=== PATIENT | female | born 2000 | race Two or more races ===

== ENCOUNTER 2024-08-12 09:13 | Outpatient (AMB) | payer OTHER, MEDICAID, SELFPAY ==
[2024-08-12 09:39] VITALS: BP 140/87; PULSE 83; RESP 18; TEMP 36.6; O2SAT 96; BMI 41.3
--- NOTE | 2024-08-12 09:39 | OBCLNT_ITS ---
Vital Signs 08/12/24 09:39 Height 1.6 m Height Method Stated Weight 105.8 kg Weight Measurement Method Standing Scale BMI 41.3 BP 140/87 H Blood Pressure Source Automatic Cuff Blood Pressure Location Right Upper Arm Position Sitting Respiration 18 Pulse 83 Pulse Source Monitor Temp 98 F Temp Source Oral Pulse Oximetry (%) 96 Oxygen Delivery Method Room Air Allergies/Home Meds Allergies & Medications Allergies tampico Allergy (Intermediate, Uncoded 08/20/24 17:57) Hives Medication Reconciliation sertraline 100 mg tablet 100 mg PO DAILY 09/22/20 [History Confirmed 08/20/24] metformin 500 mg tablet 500 mg PO .see below 30 days #90 tabs 08/12/24 [Rx Confirmed 08/20/24] metformin 1,000 mg tablet 1,000 mg PO .nightly 08/20/24 [History Confirmed 08/20/24] hydrocodone 5 mg-acetaminophen 325 mg tablet 1 tab PO Q6H PRN pain #20 tabs 08/22/24 [Rx] ibuprofen 600 mg tablet 600 mg PO Q6H PRN pain #30 tabs 08/22/24 [Rx] labetalol 200 mg tablet 200 mg PO BID #60 tabs 08/24/24 [Rx] Intake Visit Data Collection New Patient or Established: Established Patient (seen at [facility] within 3 years) Reason for Visit:: INITIAL CARE/TRANSFER Seen by Clinical Staff ONLY (RN/MA): No Advertising Production Manager Required: No Do You Feel Safe at Home: Yes Authorities Contacted: N/A PCP or OBGYN visit in last 3 months: Yes Hx Now: Yes Are you currently on any form of Control: No Last menstrual period: 12/08/23 Pain Present Currently: No Pain Scale Used: Li-Mckinney/Numerical Pain scale:: 0 Smoking Status Smoking Status: Former smoker Questionnaires Covid-19 Vaccine Questionnaire Has patient been vacinated for Covid-19 Have you been vacinated for Covid-19: Yes PHQ-9 PHQ-2 Over the last 2 weeks, how often have you been bothered by any of the following problems? 1. Little interest or pleasure in doing things: not at all 2. Feeling down, depressed, or hopeless: not at all Total score: 0 PHQ-9 3. Trouble falling or staying asleep, or sleeping too much: Not at all 4. Feeling tired or having little energy: Not at all 5. Poor appetite or overeating: Not at all 6. Feeling bad about yourself - or that you are a failure or have let yourself or your family down: Not at all 7. Trouble concentrating on things, such as reading the newspaper or watching television: Not at all 8. Moving or speaking so slowly that other people could have noticed? - Or the opposite - being so fidgety or restless that you have been moving around a lot more than usual: not at all 9. Thoughts that you would be better off or of hurting yourself in some way: Not at all Total score: 0 Source: Developed by Drs. Paul Helton, Naya Logan, Nic Armas and colleagues, with an educational woody from [employer]. Depression screen completed yes Social History Living Situation History Marital Status: Lives With: Family Housing: House Tobacco History Smoking Status: Former smoker Second Hand Smoke Exposure: No Alcohol History Alcohol Intake: Never Domestic Abuse History Do You Feel Safe at Home: Yes History of Present Illness HPI Narrative Kym Cantu, , presents for routine visit at 31 weeks gestation. No contractions, LOF, VB and reports good FM. Denies LEPE, VC, and epigastric pain. - Kym Cantu is a 24-year-old presenting for transfer of care at 35 weeks and 3 days gestation. - Last menstrual period was 12-08-2023, with an estimated due date of 09-12-2024. - Patient has gestational diabetes: - Initially prescribed Lantus and Humalog - Currently on metformin: 500 mg in the morning and 1000 mg at night - Blood sugar levels: 130-150 postprandial and 110-120 fasting - Needs refill of metformin Laboratory, Imaging, and Diagnostic Test Results - Date: 02/15/2024 - Blood group: O-positive - Hemoglobin: 12.5 g/dL - Platelets: 307 - RPR: non-reactive - Hepatitis B: negative - Gonorrhea and chlamydia: negative - One-hour glucose tolerance: 221 mg/dL - Hemoglobin A1c: 5.7% - Cystic fibrosis screening: negative - Date: 02/16/2024 - NIPT: negative for trisomies - Ultrasound (05/22/2024): Gestational age 22 weeks and 4 days - Ultrasound (07/16/2024): - Single intrauterine - DALLIN: 24.02 cm - Estimated weight: 1876 grams (52nd percentile) - Gestational age: 31 weeks and 3 days 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 No contractions, leakage of fluid, vaginal bleeding, and reports good movement. Denies headache, vision changes, or right upper quadrant/epigastric pain. Gestational diabetes diagnosed with one-hour glucose 221 mg/dL, HbA1c 5.7%, managed on metformin 500 mg AM and 1000 mg PM; current sugars 130?150 postprandial and 110?120 fasting. Ultrasound at 31w3d shows DALLIN 24.02 cm, EFW 1876g (52nd percentile). NIPT negative for trisomies, blood type O+, normal hemoglobin and infectious screening. Plan: Problem list: Gestational diabetes kennedy leung, 31w. Continue metformin 500 mg AM and 1000 mg PM; initiate switch to long-acting insulin for nighttime coverage. Start hospital-based twice-weekly monitoring for diabetes management. Refill metformin prescription to [facility] in [place]. Weekly visits to [facility], [facility] appointment scheduled 08/20/2024. Counseling provided on movement monitoring, preeclampsia and labor precautions, nutrition, safe activity, and delivery preparation. 08/19/24 -?-?-?-?-?-?-?-?-?-?-?-?- 36w 3d 110.847 kg 132/83 @36w3d with GDM on metformin (500mg AM, 1000mg PM), declined insulin. Glucose logs show highs ~150. Reports persistent headache last week; evaluated at hospital. FHR 145 bpm, good FM. Awaiting growth US at [facility] on 08/20. Plan: Call [facility] at 3 PM for US re sullorrie; consider induction based on . Book induction accordingly. Self-administered vaginal GBS swab today. F/u next week; provider to call patient with updates prior. Continue monitoring, safety counseling, and GDM management. Menstrual History Menstrual reliability: definite Flow: normal Menstrual regularity: regular Monthly: Yes Age at menarche: 11 On control pills at conception: No OB History : 1 # of Living Children: 0 Infection History & Risk Evaluation History of STDs: none Genetic Screening & History Genetic Screening/Teratology Counseling - Includes patient, baby's father, or anyone in either family with: 1. Patient's age 35 years or older as of estimated date of delivery: No 2. Thalassemia (Macedonian, Uruguayan, Mediterranean, or Background); MCV less than 80: No 3. Neural Tube Defect (Meningomyelocele, Spina Bifida, or Anencephaly): No 4. Congenital Heart Defect: No 5. Down Syndrome: No 6. Leo-Sachs (Ashkenazi Anglican, Cajun, Setswana Palauan): No 7. Rina Disease (Ashkenazi Anglican): No 8. Familial Dysautonomia (Ashkenazi Anglican): No 9. Sickle Cell Disease or Trait (): No 10. Hemophilia or other blood disorders: No 11. Muscular Dystrophy: No 12. Cystic Fibrosis: No 13. Patrick's Chorea: No 14. Mental Retardation/Autism: No 15. Other inherited genetic or chromosomal disorder: No 16. Maternal Metabolic Disorder (EG,TYPE 1 Diabetes, PKU): No 17. Patient or baby's father had a child with defects not listed above: No 18. Recurrent loss or a stillbirth: No 19. Medications (including supplements, vitamins, herbs or otc drugs)/illicit/recreational drugs/alcohol since last menstrual period: No 20. Any other: No Infection History 1. Live with someone with TB or exposed to TB: No 2. Rash or viral illness since last menstrual period: No 3. Hepatitis B,C: No Other (see comments) Source: [employer] Office Procedures OB Clinic LOC & Office Proc's Nursing/Assessment Patient Status: Established Patient OB Clinic Nursing Assessment: Medication Reconciliation, Update PMH in EMR and Vital Signs OB Clinic Coordination of Care: Complex Care and Chronic Disease 1-5, Consent,records obtained, informed consent, Education Simp Pt/Fam, Lab and Imaging orders, Results/Orders obtained and Staff clarify orders Special Needs: Heart tones Established Patient Charge Established Patient Point Assignment: 135 Established Patient Point Charge: EP Level 4 (120-155) Assessment & Plan Diagnosis / Problem List (1) Body mass index (BMI) of 40.1 to 44.9 in adult: Status: Acute (2) Gestational diabetes: Status: Acute (3) High-risk in third trimester: Status: Acute Plan Problem List - Gestational diabetes mellitus - , third trimester Assessment 24-year-old at 31 weeks and 3 days gestation based on last menstrual period, presenting for transfer of care. Gestational diabetes diagnosed with one-hour glucose tolerance of 221 and HbA1c of 5.7. Currently managed with metformin 500 mg in the morning and 1000 mg at night, with blood sugar levels 130-150 postprandial and 110-120 fasting. Single intrauterine confirmed by ultrasound with DALLIN of 24.02 and estimated weight of 1876 grams (52nd percentile). NIPT negative for trisomies. labs show O- positive blood type, normal hemoglobin and platelets, negative for infectious diseases and cystic fibrosis screening. Plan - Continue metformin 500 mg in the morning and 1000 mg at night - Replace night metformin with long-acting insulin for better blood sugar control - Initiate monitoring at the hospital twice a week for diabetes management - Refill metformin prescription, to be sent to [facility] in [place] - Schedule weekly follow-up appointments - Attend [facility] appointment on 08-20-2024 1. Progress Reviewed gestational age, growth, and heart rate. Planned frequent visits (every 2 weeks until 36 weeks, then weekly). 2. Instructed patient to monitor movements and report decreases immediately. 3. Testing Counseled on routine third-trimester labs per guidelines. Discussed potential need for ultrasound or monitoring based on risk factors. 4. Preeclampsia Precaution Educated on preeclampsia signs: severe headache, vision changes, right upper quadrant pain, sudden swelling. Advised urgent reporting of symptoms and discussed blood pressure monitoring if high risk. 5. Labor Precautions Reviewed labor signs: regular contractions, pelvic pressure, back pain, bleeding, or fluid leakage. Instructed to seek immediate care for these symptoms. 6. Lifestyle and Delivery Preparation Reinforced vitamins, nutrition, and safe activity. Discussed plan, pain management, and . Advised on labor preparation (e.g., hospital bag) and expectations. 7. Psychosocial Support Assessed emotional well-being and offered resources for mental health or pare nting support.
== END 2024-08-12 09:46 | disposition home or self-care (01) ==
LOC: HODSOBC 09:13
PROVIDERS: PCP Nurse Practitioner Family; Referring Provider Nurse Practitioner Family; Supervising Provider Obstetrics & Gynecology; Visit Provider Obstetrics & Gynecology
DX: O09.893 Supervision of other high risk pregnancies, third trimester (principal); O24.415 Gestational diabetes mellitus in pregnancy, controlled by oral hypoglycemic drugs; Z3A.35 35 weeks gestation of pregnancy; Z87.891 Personal history of nicotine dependence
CPT/HCPCS: 99214; G0463

== ENCOUNTER 2024-08-19 08:54 | Outpatient (AMB) | payer OTHER, MEDICAID, SELFPAY ==
[2024-08-19 09:34] VITALS: BP 132/83; PULSE 74; RESP 17; TEMP 36.8; O2SAT 97; BMI 43.2
--- NOTE | 2024-08-19 09:34 | AMB.OBVISIT ---
Vital Signs 08/19/24 09:34 Height 1.6 m Height Method Stated Weight 110.847 kg Weight Measurement Method Standing Scale BMI 43.2 BP 132/83 H Blood Pressure Source Automatic Cuff Blood Pressure Location Right Upper Arm Position Sitting Respiration 17 Pulse 74 Pulse Source Monitor Temp 98.2 F Temp Source Temporal Artery Scan Pulse Oximetry (%) 97 Oxygen Delivery Method Room Air Allergies/Home Meds Allergies & Medications Allergies No Known Allergies Allergy (Verified 08/19/24 11:49) Medication Reconciliation alprazolam 0.25 mg tablet 0.25 mg PO DAILY 09/22/20 [History Confirmed 08/19/24] sertraline 100 mg tablet 100 mg PO DAILY 09/22/20 [History Confirmed 08/19/24] albuterol sulfate 90 mcg/actuation aerosol inhaler 2 puff inhalation QID #8.5 grams 12/31/20 [Rx Confirmed 08/19/24] cetirizine 10 mg tablet (Zyrtec) 10 mg PO QDAY PRN allergy symptoms #30 tabs 12/31/20 [Rx Confirmed 08/19/24] metformin 500 mg tablet 500 mg PO .see below 30 days #90 tabs 08/12/24 [Rx Confirmed 08/19/24] Intake Visit Data Collection New Patient or Established: Established Patient (seen at [facility] within 3 years) Reason for Visit:: OBC Seen by Clinical Staff ONLY (RN/MA): No Decorator Lighting Fixtures Required: No Do You Feel Safe at Home: Yes Authorities Contacted: N/A PCP or OBGYN visit in last 3 months: Yes Date of Last PCP or OBGYN visit: 08/12/24 Hx Now: Yes Are you currently on any form of Control: No Pain Present Currently: Yes Pain Location: Abdomen Pain Scale Used: Li-Mckinney/Numerical Pain scale:: 2 Smoking Status Smoking Status: Former smoker Questionnaires Covid-19 Vaccine Questionnaire Has patient been vacinated for Covid-19 Have you been vacinated for Covid-19: Yes PHQ-9 PHQ-2 Over the last 2 weeks, how often have you been bothered by any of the following problems? 1. Little interest or pleasure in doing things: not at all 2. Feeling down, depressed, or hopeless: not at all Total score: 0 PHQ-9 3. Trouble falling or staying asleep, or sleeping too much: Not at all 4. Feeling tired or having little energy: Not at all 5. Poor appetite or overeating: Not at all 6. Feeling bad about yourself - or that you are a failure or have let yourself or your family down: Not at all 7. Trouble concentrating on things, such as reading the newspaper or watching television: Not at all 8. Moving or speaking so slowly that other people could have noticed? - Or the opposite - being so fidgety or restless that you have been moving around a lot more than usual: not at all 9. Thoughts that you would be better off or of hurting yourself in some way: Not at all Total score: 0 If you checked off any problems, how difficult have these problems made it for you to do your work, take care of things at home, or get along with other people?: not difficult at all Source: Developed by Drs. Paul Helton, Naya Logan, Nic Armas and colleagues, with an educational woody from [employer]. 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 Patient reports headache. Denies VC, and epigastric pain. - Kym Cantu is a 24-year-old at 36 weeks and 3 days gestation presenting for follow-up of gestational diabetes mellitus (GDM). - Currently taking metformin for GDM management - 500 mg with breakfast and 1000 mg with dinner - Originally prescribed insulin but declined due to fear of needles - Here for review of glucose logs - Reports highest blood sugar reading around 150 mg/dL - Recent hospital visit for persistent headache - Lasted for a couple of days - Hospital suggested potential induction in the coming weeks - Denies any other issues - Reports baby is active Care OB Visit Log OB Flowsheet Initial Weight: Not Recorded Date <del>?</del> EGA Weight BP Alb Glu CTX Pres Fundal ht FHR Mov Dilation Station Effacement Hx Notes Visit Note 08/12/24 <del>?</del> 35w 3d 105.8 kg 140/87 at 31 weeks gestation presents for transfer of care. No contractions, leakage of fluid, vaginal bleeding, and reports good movement. Denies headache, vision changes, or right upper quadrant/epigastric pain. Gestational diabetes diagnosed with one-hour glucose 221 mg/dL, HbA1c 5.7%, managed on metformin 500 mg AM and 1000 mg PM; current sugars 130?150 postprandial and 110?120 fasting. Ultrasound at 31w3d shows DALLIN 24.02 cm, EFW 1876g (52nd percentile). NIPT negative for trisomies, blood type O+, normal hemoglobin and infectious screening. Plan: Problem list: Gestational diabetes mellitus, 31w. Continue metformin 500 mg AM and 1000 mg PM; initiate switch to long-acting insulin for nighttime coverage. Start hospital-based twice-weekly monitoring for diabetes management. Refill metformin prescription to [facility] in [place]. Weekly visits to begin, next [facility] appointment scheduled 08/20/2024. Counseling provided on movement monitoring, preeclampsia and labor precautions, nutrition, safe activity, and delivery preparation. 08/19/24 <del>?</del> 36w 3d 110.847 kg 132/83 @36w3d with GDM on metformin (500mg AM, 1000mg PM), declined insulin. Glucose logs show highs ~150. Reports persistent headache last week; evaluated at hospital. FHR 145 bpm, good FM. Awaiting growth US at [facility] on 08/20. Plan: Call [facility] at 3 PM for US results; consider induction based on growth. Book induction accordingly. Self-administered vaginal GBS swab today. F/u next week; provider to call patient with updates prior. Continue monitoring, safety counseling, and GDM management. LUIS Calculator Estimated Delivery Date Method Current WG Current Estimate 09/13/24 LMP (Certain) 36w 4d Other Estimates 09/21/24 Ultrasound #1 35w 3d 09/14/24 Ultrasound #2 36w 3d Exam General General Appearance: alert, in no apparent distress and healthy appearing Head Head exam: atraumatic Neck Neck exam: Present normal inspection and trachea midline Chest Chest inspection: Present normal inspection and symmetric chest wall rise External exam: Present normal external exam; Absent tenderness Neuro Neurological exam: Present oriented X3 Psych Psychiatric exam: Present normal affect and normal mood Office Procedures OB Clinic LOC & Office Proc's Nursing/Assessment Patient Status: Established Patient OB Clinic Nursing Assessment: Medication Reconciliation, Update PMH in EMR and Vital Signs OB Clinic Coordination of Care: Complex Care and Chronic Disease 1-5, Consent,records obtained, informed consent, Education Simp Pt/Fam, Lab and Imaging orders and Staff clarify orders Special Needs: Heart tones Established Patient Charge Established Patient Point Assignment: 130 Established Patient Point Charge: EP Level 4 (120-155) Assessment & Plan Diagnosis / Problem List (1) High-risk in third trimester: Status: Acute (2) Body mass index (BMI) of 40.1 to 44.9 in adult: Status: Acute Plan Problem List - Gestational diabetes mellitus - , first trimester - Headache Assessment at 36 weeks and 3 days gestation with LUIS 09/14/2019, presenting for follow-up. Patient has gestational diabetes mellitus (GDM) managed with metformin 500 mg at breakfast and 1000 mg at dinner, after declining insulin due to needle phobia. Recent glucose logs show highest reading of 150 mg/dL. Patient reports recent hospital visit due to persistent headache lasting several days. heart rate auscultated at 145 bpm, with reported activity. Awaiting results of upcoming maternal- medicine ultrasound to assess growth and guide potential induction planning. Plan - Follow up ultrasound at [facility] on August 20, 2024 - Provider to call [facility] around 3 PM for ultrasound report - Based on ultrasound measurements, plan for potential induction and book induction date - Patient to perform self-administered vaginal swab culture - Follow-up appointment scheduled for next week - Provider to call patient with updates before next week's appointment 1. Progress Reviewed gestational age, growth, and heart rate. Planned frequent visits (every 2 weeks until 36 weeks, then weekly). 2. Instructed patient to monitor movements and report decreases immediately. 3. Testing Counseled on routine third-trimester labs per guidelines. Discussed potential need for ultrasound or monitoring based on risk factors. 4. Preeclampsia Precaution Educated on preeclampsia signs: severe headache, vision changes, right upper quadrant pain, sudden swelling. Advised urgent reporting of symptoms and discussed blood pressure monitoring if high risk. 5. Labor Precautions Reviewed labor signs: regular contractions, pelvic pressure, back pain, bleeding, or fluid leakage. Instructed to seek immediate care for these symptoms. 6. Lifestyle and Delivery Preparation Reinforced vitamins, nutrition, and safe activity. Discussed plan, pain management, and . Advised on labor preparation (e.g., hospital bag) and expectations. 7. Psychosocial Support Assessed emotional well-being and offered resources for mental health or parenting support.
== END 2024-08-19 09:56 | disposition home or self-care (01) ==
LOC: HODSOBC 08:54
PROVIDERS: PCP Obstetrics & Gynecology; Referring Provider Obstetrics & Gynecology; Supervising Provider Obstetrics & Gynecology; Visit Provider Obstetrics & Gynecology
DX: O09.893 Supervision of other high risk pregnancies, third trimester (principal); O24.415 Gestational diabetes mellitus in pregnancy, controlled by oral hypoglycemic drugs; O26.893 Other specified pregnancy related conditions, third trimester; R51.9 Headache, unspecified; Z3A.36 36 weeks gestation of pregnancy; O99.343 Other mental disorders complicating pregnancy, third trimester; F40.231 Fear of injections and transfusions; Z87.891 Personal history of nicotine dependence
CPT/HCPCS: 99214; G0463

== ENCOUNTER 2024-08-20 15:52 | Inpatient (IN) | payer OTHER, MEDICAID, SELFPAY ==
[2024-08-20] VITALS (101 sets, daily range): BP systolic 132–185; BP diastolic 64–99; PULSE 77–106; RESP 17–99; TEMP 36.6–36.7; O2SAT 93–100; BMI 43.7
--- NOTE | 2024-08-20 16:34 | XR_ITS ---
Examination: Complete OB ultrasound greater than 14 weeks Date and time of exam: August 20, 2024 1644 hours INDICATIONS: -induced hypertension today Findings: Viable intrauterine single fetus with single amniotic sac presentation cephalic Cardiac motion 152 BPM Placenta anterior grade 2 Three-vessel umbilical cord insertion Amniotic fluid index 19.4 cm spine posterior Ovaries obscured by bowel gas. Composite estimated gestational age based on BPD, head circumference, abdominal circumference, femur length is 37 weeks 2 days Estimated weight 3270 g. Survey of intracranial anatomy, spinal anatomy, abdominal anatomy, four-chamber heart performed with no abnormalities identified. Impression: Viable intrauterine gestation cephalic presentation.
[2024-08-20 16:39] LABS: Basophils % (Auto) 0 % (0-2.5); Eosinophils # (Auto) 0.3 Thou/mm3 (0.0-0.5); Eosinophils % (Auto) 2 % (0-10); Hematocrit 36.8 % (36.0-46.0); Hemoglobin 12.1 g/dL (12.0-16.0); Immature Granulocytes % (Auto) 0 % (0-0); Immature Granulocytes Auto 0.05 Thou/mm3 (0.00-0.00); Lymphocytes # (Auto) 1.8 Thou/mm3 (1.0-4.8); Lymphocytes % (Auto) 14 % (10-50); Mean Corpuscular HGB Conc 32.9 g/dl (31.0-37.0); Mean Corpuscular Hemoglobin 27.5 pg (25.0-35.0); Mean Corpuscular Volume 84 fL (80-100); Monocytes # (Auto) 1.1 Thou/mm3 (0.0-0.8); Monocytes % (Auto) 8 % (0-12); Neutrophils % (Auto) 76 % (37-80); Nucleated Red Blood Cell % 0 /100 WBC (0); Platelet Count 194 Thou/mm3 (140-440); RDW Standard Deviation 51.9 fL (36.4-46.3); White Blood Count 13.2 Thou/mm3 (3.6-11.0)
[2024-08-20 16:59] LABS: Alanine Aminotransferase 15 U/L (10-49); Albumin, Serum 3.6 gm/dL (3.5-5.0); Albumin/Globulin Ratio 1.4 (1.2-2.2); Alkaline Phosphatase 115 U/L (46-116); Anion Gap 12 (7-16); Aspartate Amino Transferase 23 U/L (0-34); BUN/Creatinine Ratio 17 Ratio (12-20); Bilirubin,Total 0.3 mg/dL (0.3-1.2); Blood Urea Nitrogen 10 mg/dL (9-23); Calcium 9.4 mg/dL (8.3-10.6); Calcium (Corrected) 9.7 mg/dL (8.5-10.1); Carbon Dioxide 21.8 mMol/L (20.0-31.0); Chloride 105 mMol/L (98-107); Creatinine (Component) 0.6 mg/dL (0.6-1.3); Estimated Creatinine Clearance 172.5 mL/min (>60); Globulin 2.6 gm/dL (2.3-3.5); Glucose 220 mg/dL (74-106); LDH (Lactate Dehydrogenase) 163 U/L (120-246); Osmolality,Calculated 283 (275-295); Potassium 3.8 mMol/L (3.4-5.1); Sodium 139 mMol/L (136-145); Total Protein 6.2 gm/dL (5.7-8.2); Uric Acid 3.5 mg/dL (3.1-7.8); eGFR > 60 See Note
[2024-08-20 17:03] LABS: INR 0.9 (0.9-1.3); Partial Thromboplastin Time 23.7 Seconds (22.0-36.0)
[2024-08-20] MEDS: LABETALOL INJ 5 MG/ML VIAL 20 ML 20 MG IVP ×2 (17:29→17:55)
[2024-08-20 17:31] LABS: Fibrinogen 664 mg/dL (175-375)
[2024-08-20 17:43] LABS: Glucose Estimated Average 146 mg/dL (80-131); Hemoglobin A1C 6.7 % Hgb (4.8-6.0)
[2024-08-20] MEDS: Ampicillin Inj 2,000 MG in SODIUM CHLORIDE 0.9% (POP) 100 ML 200 MG IV (17:53)
[2024-08-20] MEDS: RINGERS LACTATED 1000 ML 1,000 ML 100 ML IV ×2 (17:54→18:11)
[2024-08-20] MEDS: hydrALAZINE INJ 20 MG/ML VIAL 5 MG IVP (18:27)
[2024-08-20 18:28] LABS: Syphilis Nonreactive (Nonreactive)
[2024-08-20 18:34] LABS: Rubella, IgG Antibody Equivocal
[2024-08-20 18:37] LABS: Collection Type, Urine Clean Catch; WBC,Urine 0 /hpf (0-5)
[2024-08-20 18:53] LABS: Bacteria,Urine 1+; Bilirubin,Urine Negative (Negative); Blood,Urine Trace (Negative); Clarity,Urine Clear (Clear/Hazy); Color,Urine Lt-Yellow (Lt Yel-Yel); Glucose, Urine 4+ (Negative); Ketones,Urine Negative (Negative); Leukocyte Esterase,Urine Negative (Negative); Nitrite,Urine Negative (Negative); PH,Urine 6.5 (5.0-7.0); Protein,Urine 2+ (Neg - Trace); RBC,Urine 1 /hpf (0-3); Specific Gravity,Urine 1.012 (1.001-1.035); Squamous Epithelial Cell,Urine 2 /hpf (0-5); Urobilinogen,Urine Negative mg/dL (0.0-1.0)
[2024-08-20 18:54] LABS: Amphetamine/Metham Scrn,Ur OB Negative (Negative); Benzoylecgonine Screen, Ur OB Negative (Negative); Opiate Screen,Urine OB Negative (Negative); THC Screen,Urine OB Negative (Negative)
[2024-08-20 19:35] LABS: Creatinine,Random Urine 28 mg/dL (30-125); Protein Total, Random Urine 171 mg/dL (1-14)
[2024-08-20] MEDS: INSULIN LISPRO (AdmeLOG) 1 UNIT/0.01 ML UNIT 4 UNIT SC (19:55)
[2024-08-20] MEDS: DiphenhydrAMINE INJ 50 MG/ML VIAL 25 MG IVP (20:00)
[2024-08-20] MEDS: MISOPROSTOL 50 mCg TABLET PO (20:28)
[2024-08-20] MEDS: Ampicillin Inj 1,000 MG in SODIUM CHLORIDE 0.9% (Popper) 50 ML 50 MG IV (20:28)
--- NOTE | 2024-08-20 21:52 | PD.LDHP ---
Documentation for date of: 08/20/24 OB Labor/Induct. HPI History of Present Illness Chief complaint: Elevated blood pressures, sent over from [facility] office : 1 Para: 0 Term pregnancies: 0 pregnancies: 0 Living children: 0 History of Abortions: Spontaneous and Elective: 0 History of Vaginal deliveries: 0 History of sections: No History of : No LUIS: 09/13/24 Gestational Age (weeks): 36 Gestational Age (days): 4 Indication for induction: other (Preeclampsia) History of present illness: The patient is a 24-year-old G1, P0 at 36-4/7 weeks with most care with Dr. Bass. She transferred to see Dr. Subramanian at 35 weeks of . She is morbidly obese and diabetic this . She was following with Dr. Bill, maternal- medicine specialist in [place] for an ultrasound and her blood pressure in Dr. Bill's office was 150s to 170s over 90s. Dr. Bill sent her over directly to be evaluated in triage. In triage, the patient reported a headache. Her blood pressures were in the 150s to 170s over 90s range. Requiring 2 doses of 20 mg of IV labetalol and 1 dose of 5 mg hydralazine to get them back down to the 130s over 70s. Preeclamptic labs were normal. Patient cervix was 1 thick and high. Ultrasound revealed vertex presentation approximately 8 pound 4 ounce baby with an DALLIN of close to 20. Patient was admitted for Cytotec induction of labor secondary to morbid obesity, gestational diabetes and severe preeclampsia based on blood pressure criteria. She was told about the distinct possibility of a if we could either not get her into the labor or she began to deteriorate as far as blood pressure or lab work criteria went. Hemoglobin A1c drawn this admission is 6.7. History of Present Dating criteria: LMP confirmed by 2nd trimester US Adequate Care: No Ultrasounds: normal mid trimester US Obstetrical complications: gestational diabetes, preeclampsia and gestational hypertension Medical complications: other (Morbid obesity) Labs Maternal Blood Type: O Pos Labs: Positive: Rubella Titre, Negative: RPR, Hepatitis B, HIV, Chlamydia and Gonorrhea and Unknown: Herpes Type 1, Herpes Type 2 and Group Beta Strep Review of Systems Review of Systems Narrative Review of Systems: Patient reports a headache she denies changes in vision right upper quadrant pain or scotomata. She reports good movement she denies contractions vaginal bleeding or loss of fluids. Past Medical History Surgical History SURGICAL: Negative Section Meds Home Medications and Allergies Home Medications ?Medication ?Instructions ?Recorded ?Confirmed ?Type alprazolam 0.25 mg tablet 0.25 mg PO DAILY 09/22/20 08/20/24 History sertraline 100 mg tablet 100 mg PO DAILY 09/22/20 08/20/24 History metformin 1,000 mg tablet 1,000 mg PO .nightly 08/20/24 08/20/24 History Allergies Allergy/AdvReac Type Severity Reaction Status Date / Time tampico Allergy Intermediate Hives Uncoded 08/20/24 17:57 OB Exam Physical Exam Vital signs: Temp Pulse Resp BP Pulse Ox O2 Del Method 98 F 95 17 132/73 H 99 Room Air 08/20/24 21:31 08/20/24 21:38 08/20/24 21:31 08/20/24 21:38 08/20/24 21:47 08/20/24 16:14 Routine Abdominal Exam Abdominal: Present soft Comments: Large abdominal girth. Thick edema of abdomen. Detailed Labor and Delivery Exam Effacement (%): Thick Cervix position: posterior station: -4 Consistency: medium Presentation: Vertex Membranes: intact monitor accelerations: 15x15 monitor decelerations: None jail variability: Moderate (11-25) Contraction frequency (min): Irregular Tachysystole: No Contraction intensity: Mild Comments: head not engaged in the pelvis. Very high on pelvic exam OB Results Labs 08/20/24 16:03 08/20/24 16:03 Labs: Short CBC 08/20/24 Range/Units 16:03 WBC 13.2 H (3.6-11.0) Thou/mm3 Hgb 12.1 (12.0-16.0) g/dL Hct 36.8 (36.0-46.0) % Plt Count 194 (140-440) Thou/mm3 BMP 08/20/24 16:03 Sodium 139 Potassium 3.8 Chloride 105 Carbon Dioxide 21.8 BUN 10 Creatinine 0.6 Glucose 220 H Calcium 9.4 Liver Function 08/20/24 Range/Units 16:03 Total Bilirubin 0.3 (0.3-1.2) mg/dL AST 23 (0-34) U/L ALT 15 (10-49) U/L Alkaline Phosphatase 115 (46-116) U/L Albumin 3.6 (3.5-5.0) gm/dL Urine 08/20/24 Range/Units 16:03 Urine Color Lt-Yellow (Lt Yel-Yel) Urine Clarity Clear (Clear/Hazy) Urine pH 6.5 (5.0-7.0) Ur Specific [place] 1.012 (1.001-1.035) Urine Protein 2+ A (Neg - Trace) Urine Glucose (UA) 4+ A (Negative) Ultrasound reviewed. Vertex presentation. DALLIN 19.4. EFW 8 pounds 4 ounces. OB Assessment & Plan Assessment and Plan (1) High-risk in third trimester: Status: Acute (2) Body mass index (BMI) of 40.1 to 44.9 in adult: Status: Acute (3) Gestational diabetes: Status: Acute Assessment and plan: Patient on 500 metformin at breakfast and at thousand at night. Current hemoglobin A1c 6.7. Blood sugar admission 220. Ordered 4 units of insulin. Will treat with sliding scale for now. (4) Severe pre-eclampsia affecting first : Status: Acute Assessment and plan: Admit patient. Offered induction of labor versus . Patient opted for induction of labor for now. I told her this could be a long induction and that we might end up doing a . If we have to push blood pressure medications too often or if her labs deteriorate or anything in her condition deteriorates we will have to perform a . There is a high likelihood will end up with a as the baby is not engaged in her pelvis. Monitor closely. Consider magnesium but hold off for now as patient is not in active labor yet. (3) Gestational diabetes Qualifiers: Gestational diabetes mellitus control: oral hypoglycemic-controlled Trimester: third trimester Qualified Code(s): O24.415 - Gestational diabetes mellitus in , controlled by oral hypoglycemic drugs
[2024-08-21] VITALS (215 sets, daily range): BP systolic 113–185; BP diastolic 62–124; PULSE 70–111; RESP 17; TEMP 36.6–36.8; O2SAT 89–100
[2024-08-21] MEDS: Ampicillin Inj 1,000 MG in SODIUM CHLORIDE 0.9% (Popper) 50 ML 50 MG IV (01:44)
[2024-08-21] MEDS: MISOPROSTOL 50 mCg TABLET PO ×2 (02:03→15:19)
[2024-08-21 05:18] LABS: Basophils # (Auto) 0.1 Thou/mm3 (0.0-0.2); Basophils % (Auto) 0 % (0-2.5); Eosinophils # (Auto) 0.2 Thou/mm3 (0.0-0.5); Eosinophils % (Auto) 1 % (0-10); Hematocrit 35.9 % (36.0-46.0); Hemoglobin 11.9 g/dL (12.0-16.0); Immature Granulocytes % (Auto) 0 % (0-0); Immature Granulocytes Auto 0.05 Thou/mm3 (0.00-0.00); Lymphocytes # (Auto) 1.7 Thou/mm3 (1.0-4.8); Lymphocytes % (Auto) 12 % (10-50); Mean Corpuscular HGB Conc 33.1 g/dl (31.0-37.0); Mean Corpuscular Hemoglobin 27.6 pg (25.0-35.0); Mean Corpuscular Volume 83 fL (80-100); Monocytes # (Auto) 1.2 Thou/mm3 (0.0-0.8); Monocytes % (Auto) 8 % (0-12); Neutrophils # (Auto) 11.7 Thou/mm3 (1.8-7.7); Neutrophils % (Auto) 79 % (37-80); Nucleated Red Blood Cell % 0 /100 WBC (0); Platelet Count 190 Thou/mm3 (140-440); RDW Standard Deviation 51.8 fL (36.4-46.3); Red Blood Count 4.31 Miln/mm3 (4.00-5.20); White Blood Count 14.9 Thou/mm3 (3.6-11.0)
[2024-08-21] MEDS: fentaNYL CIT INJ 50 mCg/ML AMP 2ML 100 MCG IVP ×2 (05:26→15:45)
[2024-08-21 05:38] LABS: Alanine Aminotransferase 15 U/L (10-49); Albumin, Serum 3.5 gm/dL (3.5-5.0); Albumin/Globulin Ratio 1.5 (1.2-2.2); Alkaline Phosphatase 101 U/L (46-116); Anion Gap 12 (7-16); BUN/Creatinine Ratio 12 Ratio (12-20); Bilirubin,Total 0.4 mg/dL (0.3-1.2); Blood Urea Nitrogen 6 mg/dL (9-23); Calcium 8.9 mg/dL (8.3-10.6); Calcium (Corrected) 9.3 mg/dL (8.5-10.1); Carbon Dioxide 21.7 mMol/L (20.0-31.0); Chloride 107 mMol/L (98-107); Creatinine (Component) 0.5 mg/dL (0.6-1.3); Estimated Creatinine Clearance 207.1 mL/min (>60); Globulin 2.4 gm/dL (2.3-3.5); Glucose 93 mg/dL (74-106); Osmolality,Calculated 278 (275-295); Potassium 3.7 mMol/L (3.4-5.1); Sodium 141 mMol/L (136-145); Total Protein 5.9 gm/dL (5.7-8.2); eGFR > 60 See Note
[2024-08-21] MEDS: metFORMIN 500 MG TABLET PO (07:55)
--- NOTE | 2024-08-21 08:03 | PD.LDPN ---
Documentation for date of: 08/21/24 OB Labor Progress Note Pelvic Exam Dilation (cm): 1.5 Effacement (%): Thick station: -4 Amniotic membrane status: Intact Contractions Monitor mode: External Contraction frequency: 1-3- Contraction intensity: Mild Status status: Category l Assessment and Plan Comments: Taken over care from overnight on-call physician Blood pressure currently well-controlled, patient is on misoprostol and last exam was 1 cm thick and high with intact membranes Continue current management plan.
[2024-08-21] MEDS: LABETALOL 100 MG TABLET PO ×2 (09:30→21:19)
[2024-08-21 09:55] LABS: HIV (1&2) Antibody Rapid Non-Reactive
[2024-08-21] MEDS: RINGERS LACTATED 1000 ML 1,000 ML 100 ML IV ×2 (11:04→21:20)
[2024-08-21] MEDS: ACETAMINOPHEN 325 MG TABLET 650 MG PO ×2 (14:55→21:36)
[2024-08-21] MEDS: INSULIN LISPRO (AdmeLOG) 1 UNIT/0.01 ML UNIT SC (17:34)
[2024-08-21] MEDS: metFORMIN 500 MG TABLET 1000 MG PO (17:45)
[2024-08-22] VITALS (138 sets, daily range): BP systolic 114–184; BP diastolic 57–106; PULSE 73–114; RESP 12–22; TEMP 36.3–37.1; O2SAT 89–100
[2024-08-22] MEDS: MISOPROSTOL 50 mCg TABLET PO (03:43)
[2024-08-22] MEDS: ACETAMINOPHEN 325 MG TABLET 650 MG PO ×3 (06:22→23:41)
[2024-08-22] MEDS: metFORMIN 500 MG TABLET PO (07:47)
--- NOTE | 2024-08-22 08:52 | PD.LDPN ---
Documentation for date of: 08/22/24 OB Labor Progress Note Pain Control Comments: Denies LEPE, Change in vision, RUQ pain, SOB, Chest Pain or Palpitations. Pelvic Exam Dilation (cm): 1.5 Effacement (%): 50 station: -4 Amniotic membrane status: Intact Contractions Monitor mode: External Contraction frequency: 2.5-6 Contraction pattern: Coupling Contraction intensity: Moderate Status status: Category l Assessment and Plan Comments: IUP 36 wks Chronic HTN with superimposed Preeclampsia with severe features Type II DM Induction of Labor per recommendation of MFM Desires to continue to pursue induction of labor Cervidil Informed consent obtained patient made aware of the risks , complications alternative and risks of OVD and CS and agrees with these modes of delivery if indicated
[2024-08-22] MEDS: LABETALOL 100 MG TABLET PO (09:30)
[2024-08-22] MEDS: DINOPROSTONE 10 MG VAG.SUPP VAGINAL (10:13)
[2024-08-22] MEDS: LABETALOL 100 MG TABLET 200 MG PO ×2 (15:03→21:48)
[2024-08-22] MEDS: hydrALAZINE INJ 20 MG/ML VIAL 10 MG IVP (15:58)
[2024-08-22] MEDS: FAMOTIDINE INJ 10 MG/ML VIAL 2 ML 20 MG IV (16:42)
[2024-08-22] MEDS: METOCLOPRAMIDE INJ 5 MG/ML VIAL 2 ML 10 MG IVP (16:42)
[2024-08-22] MEDS: ceFAZolin/D5W 2 GM IV 2 GM/100 ML BAG IV (16:44)
--- NOTE | 2024-08-22 16:47 | PD.LDPN ---
Documentation for date of: 08/22/24 OB Labor Progress Note Pain Control Comments: Patient continues to have severe range blood pressures that have not been controlled despite antihypertensives. She is got a headache and is remote from delivery. Pelvic Exam Dilation (cm): 1.5 Effacement (%): 50 station: -4 Amniotic membrane status: Intact Contractions Monitor mode: External Contraction frequency: 2.5-6 Contraction pattern: Coupling Contraction intensity: Moderate Status status: Category l Assessment and Plan Comments: delivery Informed consent was obtained and the patient made aware the risk complications alternatives and benefits of the proposed procedure and she agrees
[2024-08-22] MEDS: OXYTOCIN in NS 20 units 20 UNIT/1,000 ML BAG 125 UNIT IV (18:05)
--- NOTE | 2024-08-22 18:07 | PD.LDDS ---
DS: Providers Provider Date of admission: 08/20/24 17:38 Primary care physician: Physician No Primary/Family Admitting Provider: Gema Carlson MD ([facility]) Attending Provider on Admission: Ej Hameed MD Attending Provider on DC: Ej Hameed MD Discharging Provider: Ej Hameed MD DS: Diagnosis Problem List Completed Was Problem List Reviewed/Reconciled?: Yes Summary/Hosp Course Brief History: The patient is a 24-year-old G1, P0 at 36-4/7 weeks with most care with Dr. Bass. She transferred to see Dr. Subramanian at 35 weeks of . She is morbidly obese and diabetic this . She was following with Dr. Bill, maternal- medicine specialist in [place] for an ultrasound and her blood pressure in Dr. Bill's office was 150s to 170s over 90[address] Dr[address] Bill sent her over directly to be evaluated in triage. In triage, the patient reported a headache. Her blood pressures were in the 150s to 170s over 90s range. Requiring 2 doses of 20 mg of IV labetalol and 1 dose of 5 mg hydralazine to get them back down to the 130s over 70s. Preeclamptic labs were normal. Patient cervix was 1 thick and high. Ultrasound revealed vertex presentation approximately 8 pound 4 ounce baby with an DALLIN of close to 20. Patient was admitted for Cytotec induction of labor secondary to morbid obesity, gestational diabetes and severe preeclampsia based on blood pressure criteria. She was told about the distinct possibility of a if we could either not get her into the labor or she began to deteriorate as far as blood pressure or lab work criteria went. Hemoglobin A1c drawn this admission is 6.7. Peripartum Data Delivery Method: Low Transverse Episiotomy Description: None Procedures: Procedures Operation Date: 08/22/24 16:45 Actual Procedure Side Surgeon p in OB Not Applicable Ej Hameed MD [place] 1: Gender: Male Disposition of : home Time Spent with Patient Time attestation: Total time spent providing and/or coordinating discharge services: Exam Vital Signs Temp Pulse Resp BP Pulse Ox O2 Del Method 97.3 F 101 H 18 184/106 H 99 Room Air 08/22/24 15:55 08/22/24 16:29 08/22/24 12:00 08/22/24 16:29 08/22/24 16:47 08/22/24 07:30 Discharge Plan Plan Patient Disposition: HOME (Self Care) Patient condition on transfer: Stable Prescriptions/Referrals Prescriptions/Med Rec: New hydrocodone-acetaminophen 5-325 mg tablet 1 tab PO Q6H MDD 4 PRN (Reason: pain) Qty: 20 0RF ibuprofen 600 mg tablet 600 mg PO Q6H PRN (Reason: pain) Qty: 30 0RF labetalol 200 mg tablet 200 mg PO BID Qty: 60 1RF Continued metformin 500 mg tablet 500 mg PO .see below 30 Days Qty: 90 2RF Rx Instructions: 1 tablet with breakfast and 2 tablets with dinner metformin 1,000 mg tablet 1,000 mg PO .nightly Discontinued albuterol sulfate 90 mcg/actuation HFA aerosol inhaler 2 puff inhalation QID Qty: 8.5 0RF cetirizine [Zyrtec] 10 mg tablet 10 mg PO QDAY PRN (Reason: allergy symptoms) Qty: 30 0RF alprazolam 0.25 mg tablet 0.25 mg PO DAILY Patient Comments: TAKE 1 TABLET BY MOUTH EVERY DAY No Action sertraline 100 mg tablet 100 mg PO DAILY Patient Comments: TAKE 1 TABLET BY MOUTH EVERY DAY Referrals: No Primary/Family,Physician [Primary Care Provider] - Patient/Caregiver Discharge Instructions Discharge Activity: activity as tolerated Other Discharge Activity Instructions:: Follow up office 1 week. Education Materials: C Section Dc Print Language: Slovenian Stand Alone Forms: Milly Award Info., Patient Portal Info Letter Planned Discharge Date 08/24/24
--- NOTE | 2024-08-22 18:08 | OBDSUM_ITS ---
Data ([place]) Data Hx Section: No : 1 Term: 0 : 0 Livin Abortions: Spontaneous & Theraputic: 0 Delivery Data ([place]) Labor Data Initiation of labor: Induction Induction/Augmentation Agent: Cytotec-PO and Cervidil ROM date: 08/22/24 ROM time: 17:21 Amniotic membrane rupture type: Artificial Amniotic fluid description: Clear Delivery Data EDC: 09/15/24 EDC calculated by:: LMP/early US confirmation delivery date: 08/22/24 delivery time: 17:22 Gestational age (weeks): 36 Gestational age (days): 4 Placenta delivery date: 08/22/24 Placenta delivery time: 17:23 Delivered by: Ej Hameed [facility]: LAUREN Roman Sales Contractor at delivery: Yes Support person(s) at delivery: FOB IN OR Delivery Method Delivery method: Low Transverse Presentation: Vertex Anesthesia Type Anesthesia Type: Spinal Placenta Placenta delivery description: Manual Removal Cord blood sent to lab: Yes cord blood collection: Cord Blood Type Episiotomy Episiotomy description: None EBL Estimated blood loss (ml): 500 Umbilical Cord cord description: 3 Vessels Complications Complications: None Data ([place]) [place] Data order: 1 Ravenden's gender: Male 1 minute: 6 5 minutes: 7
--- NOTE | 2024-08-22 18:10 | PD.GYNPROC ---
Operative Note - REGULATOR OPERATOR Procedure Date of procedure: 08/22/24 Procedure Performed: Primary low-transverse section Via Pfannenstiel skin incision Indication: Intrauterine at 36 weeks and 4 days Chronic hypertension with superimposed preeclampsia with severe features Class B diabetes mellitus versus gestational diabetes mellitus class A2 Obesity Uncontrolled hypertension Induction of labor Failed induction Pre-Op diagnosis: Intrauterine at 36 weeks and 4 days Chronic hypertension with superimposed preeclampsia with severe features Class B diabetes mellitus versus gestational diabetes mellitus class A2 Obesity Uncontrolled hypertension Induction of labor Failed induction Post-Op diagnosis: Intrauterine at 36 weeks and 4 days Chronic hypertension with superimposed preeclampsia with severe features Class B diabetes mellitus versus gestational diabetes mellitus class A2 Obesity Uncontrolled hypertension Induction of labor Failed induction Endometriosis Anesthesia type: Spinal Procedure description: After proper informed consent was obtained and the patient made aware the risk complication alternative benefits of the proposed procedure she was taken to the operating room where she underwent induction of spinal anesthesia. A timeout was performed. A Pfannenstiel skin incision was made with a scalpel and carried through to the underlying layer fascia with the Bovie the fascia was nicked in the midline incision extended bilaterally with the Bovie the inferior aspect the fascia incision was grasped with [place] clamps elevated and the underlying rectus muscle dissected off with the Bovie the superior aspect the fascia incision was grasped with [place] clamps elevated and the underlying rectus muscle dissected off with the Bovie the peritoneum was grasped between 2 Wynne clamps and entered sharply with the Metzenbaum scissors. The vesicouterine peritoneum incised transversely. A [place] blade was inserted. The low transverse incision was extended digitally. The 's head delivered the mouth and nose suction with a bulb suction. Shoulder and body delivered atraumatically . The placenta was removed completely intact. The uterus was exteriorized and cleared of all clots and debris. The incision was closed with #1-0 chromic catgut suture in a running locking fashion. A second layer of the same suture was used imbricate the first layer. The vesicouterine peritoneum was closed with 2-0 chromic catgut suture in running fashion. The uterus was returned to the abdomen. The gutters were cleared of all clots and debris. The peritoneum closed with 0 chromic catgut suture in running fashion. The muscle was closed with 0 chromic catgut suture. The fascia was closed with 0 Vicryl beginning at each angle and ending at the center in a running fashion. Subcutaneous tissue was irrigated with normal saline solution found to be hemostatic and closed with 2-0 chromic catgut suture running fashion. The skin was closed with 4-0 Monocryl. A Dermabond Prineo dressing was applied a sterile pressure dressing was applied she tolerated procedure well counts were correct. I discussed with the patient the nature of her condition and the intraoperative findings the expectation for recovery all questions answered. Specimen: none Estimated blood loss (ml): 500 Findings: Live male Apgars 6 and 7 Right occiput transverse Polyhydramnios Clear amniotic fluid Superficial endometriotic implants on both ovaries and uterosacral ligaments Placenta removed complete intact Complications: none Surgical staff Operation Date: 08/22/24 16:45 Case Staff PASTE MIXING SUPERVISOR: Az Valenzuela RN First Assistant: Antonieta Perales Diagnosis Discharge Diagnosis (1) Gestational diabetes: Status: Acute (2) Severe pre-eclampsia affecting first : Status: Acute (3) Uncontrolled hypertension: Status: Acute (4) delivery delivered: Status: Acute Problem List Completed Was Problem List Reviewed/Reconciled?: Yes (1) Gestational diabetes Qualifiers: Gestational diabetes mellitus control: oral hypoglycemic-controlled Trimester: third trimester Qualified Code(s): O24.415 - Gestational diabetes mellitus in , controlled by oral hypoglycemic drugs
[2024-08-22] MEDS: KETOROLAC INJ 30 MG/ML VIAL IVP (19:50)
[2024-08-22 23:15] LABS: Basophils # (Auto) 0.1 Thou/mm3 (0.0-0.2); Basophils % (Auto) 0 % (0-2.5); Eosinophils # (Auto) 0.3 Thou/mm3 (0.0-0.5); Eosinophils % (Auto) 2 % (0-10); Hematocrit 37.5 % (36.0-46.0); Hemoglobin 12.5 g/dL (12.0-16.0); Immature Granulocytes % (Auto) 0 % (0-0); Immature Granulocytes Auto 0.07 Thou/mm3 (0.00-0.00); Lymphocytes # (Auto) 1.5 Thou/mm3 (1.0-4.8); Lymphocytes % (Auto) 10 % (10-50); Mean Corpuscular HGB Conc 33.3 g/dl (31.0-37.0); Mean Corpuscular Volume 81 fL (80-100); Monocytes # (Auto) 1.3 Thou/mm3 (0.0-0.8); Monocytes % (Auto) 8 % (0-12); Neutrophils # (Auto) 12.5 Thou/mm3 (1.8-7.7); Neutrophils % (Auto) 80 % (37-80); Nucleated Red Blood Cell % 0 /100 WBC (0); Platelet Count 199 Thou/mm3 (140-440); RDW Standard Deviation 51.8 fL (36.4-46.3); Red Blood Count 4.63 Miln/mm3 (4.00-5.20); White Blood Count 15.7 Thou/mm3 (3.6-11.0)
[2024-08-23] VITALS (8 sets, daily range): BP systolic 135–153; BP diastolic 88–97; PULSE 73–100; RESP 17–18; TEMP 36.5–36.9; O2SAT 97–99
[2024-08-23] MEDS: KETOROLAC INJ 30 MG/ML VIAL IVP ×2 (02:28→08:57)
[2024-08-23] MEDS: OXYTOCIN in NS 20 units 20 UNIT/1,000 ML BAG 125 UNIT IV (02:28)
--- NOTE | 2024-08-23 07:14 | ESPR_ITS ---
RE: SELVIN RODRIGUEZ : 2000 DATE OF SERVICE: 08/23/2024 SUBJECTIVE: Postop day #1. The patient denies any problem or complaints. She is voiding. She is ambulating. She is tolerating her diet. She is passing flatus. She denies any excessive vaginal bleeding. She denies any dizziness or lightheadedness. She denies any chest pain, palpitations, shortness of breath, or lower extremity pain. OBJECTIVE: Vital Signs: Blood pressure 135/88, heart rate 73, respirations 18, temperature 98.1. Lungs: Clear to auscultation bilaterally. Heart: Regular rate and rhythm. Abdomen: Dressing dry and intact. Fundus is firm. Extremities: Nontender. LABORATORY DATA: Hemoglobin pre-delivery is 11.9. Post-delivery is 12.5. ASSESSMENT: 1. Postop day #1 status post delivery. 2. Chronic hypertension with superimposed preeclampsia with severe features. 3. Stable blood pressures on labetalol. Continue labetalol. 4. Class B diabetes mellitus versus gestational diabetes mellitus class A2. PLAN: Continue ADA diet as well as metformin and sliding scale as needed. Plan, remove dressing, encourage ambulation, support, possible discharge home tomorrow. DT: 05:10:48 TT: 07:12:00 Ref: [id number] - TID: [id number]
[2024-08-23] MEDS: LABETALOL 100 MG TABLET 200 MG PO ×2 (08:44→20:21)
[2024-08-23] MEDS: DOCUSATE SOD 100 MG CAPSULE PO (08:44)
[2024-08-23] MEDS: metFORMIN 500 MG TABLET PO (08:44)
[2024-08-23] MEDS: HYDROcodone/APAP 5/325 TABLET 1 TAB PO (16:55)
[2024-08-23] MEDS: metFORMIN 500 MG TABLET 1000 MG PO (17:48)
[2024-08-23] MEDS: IBUPROFEN TAB 400 MG TABLET 800 MG PO (20:21)
[2024-08-24] VITALS: BP 134/88; PULSE 92; RESP 17; TEMP 36.8; O2SAT 96
[2024-08-24 04:00] VITALS: BP 146/90; PULSE 94; RESP 19; TEMP 36.6; O2SAT 100
[2024-08-24] MEDS: IBUPROFEN TAB 400 MG TABLET 800 MG PO ×2 (07:29→15:07)
[2024-08-24] MEDS: metFORMIN 500 MG TABLET PO (07:29)
--- NOTE | 2024-08-24 07:44 | ESPR_ITS ---
RE: SELVIN RODRIGUEZ : 2000 DATE OF SERVICE: 08/24/2024 S: On postoperative day #2, the patient denies any problem or complaints. She is voiding and ambulating and tolerating her regular diet, passing flatus. She denies any excessive vaginal bleeding. She denies any dizziness or lightheadedness. She denies any chest pain, palpitations, shortness of breath, or lower extremity pain. She denies any headache, change in vision, or right upper quadrant pain. O: Vital Signs: Blood pressure 146/90, heart rate 94, respirations 19, temperature 98.0, pulse oximetry is 100% on room air. Lungs: Clear to auscultation bilaterally. Heart: Regular rate and rhythm. Abdomen: Nondistended. Incision is clear and intact. Fundus is firm. Extremities: Nontender. A: 1. Postop day #2 status post delivery. 2. Chronic hypertension with superimposed preeclampsia with severe features, controlled on labetalol 200 mg p.o. b.i.d. 3. Class B diabetes mellitus, blood sugar controlled with metformin 1000 mg p.o. daily at dinner and 500 mg p.o. with breakfast. P: Discharge home. Discharge instructions given. Follow up in the office in 1 week. DT: 06:39:52 TT: 07:42:00 Ref: [id number] - TID: [id number]
[2024-08-24 09:05] VITALS: BP 148/91; PULSE 94; RESP 16; TEMP 37.7
[2024-08-24 09:06] VITALS: BP 148/91; PULSE 94
[2024-08-24] MEDS: DOCUSATE SOD 100 MG CAPSULE PO (09:06)
[2024-08-24] MEDS: LABETALOL 100 MG TABLET 200 MG PO (09:06)
[2024-08-24] MEDS: ACETAMINOPHEN 325 MG TABLET 650 MG PO (09:09)
[2024-08-24 15:02] VITALS: BP 154/94; PULSE 84; RESP 18; TEMP 36.9
[2024-08-24] MEDS: metFORMIN 500 MG TABLET 1000 MG PO (17:06)
[2024-08-24 17:11] VITALS: BP 146/92; PULSE 82
[2024-08-24] MEDS: DIPHTH,PERTUSS(ACELL),TET VAC 0.5 ML SYR- ADULT IMi (18:06)
== END 2024-08-24 18:08 | disposition home or self-care (01) | DRG 788 ==
LOC: S4SX 08-22 16:26 → S4NX 08-22 17:38
PROVIDERS: Admitting Provider Obstetrics & Gynecology; Visit Provider Specialist
PROC: 10D00Z1 Extraction of Products of Conception, Low, Open Approach (ICD-10-PCS; CPT 59514; principal; 2024-08-22 16:30)
DX: O14.14 Severe pre-eclampsia complicating childbirth (principal); E66.01 Morbid (severe) obesity due to excess calories; Z3A.36 36 weeks gestation of pregnancy; O40.3XX0 Polyhydramnios, third trimester, not applicable or unspecified; O61.0 Failed medical induction of labor; Z23 Encounter for immunization; Z37.0 Single live birth; O99.214 Obesity complicating childbirth; O24.425 Gestational diabetes mellitus in childbirth, controlled by oral hypoglycemic drugs
CPT/HCPCS: 36415; 59025; 59409; 76805; 80053; 80307; 81001; 82570; 82947; 83036; 83615; 84156; 84450; 84550; 85025; 85384; 85610; 85730; 86703; 86762; 86780; 86850; 86900; 86901; 90715; 94762; A4314; A4649; J0290; J0360; J0689; J1200; J1815; J1885; J2250; J2274; J2371; J2590; J2765; J3010; J3490; J7050; J7120; A9270; J1920; J2270

== ENCOUNTER 2024-08-29 08:44 | Outpatient (AMB) | payer OTHER, MEDICAID, SELFPAY ==
--- NOTE | 2024-08-29 08:54 | AMBOBPPN_ITS ---
Vital Signs 08/29/24 08:55 Weight 98.486 kg Weight Measurement Method Standing Scale BP 169/104 H Blood Pressure Source Automatic Cuff Blood Pressure Location Right Upper Arm Position Sitting Respiration 17 Pulse 98 Pulse Source Monitor Temp 98.0 F Temp Source Temporal Artery Scan Pulse Oximetry (%) 97 Oxygen Delivery Method Room Air Allergies/Home Meds Allergies & Medications Allergies tampico Allergy (Intermediate, Uncoded 09/05/24 15:53) Hives Medication Reconciliation sertraline 100 mg tablet 100 mg PO DAILY 09/22/20 [History Confirmed 09/05/24] metformin 500 mg tablet 500 mg PO .see below 30 days #90 tabs 08/12/24 [Rx Confirmed 09/05/24] metformin 1,000 mg tablet 1,000 mg PO .nightly 08/20/24 [History Confirmed 09/05/24] hydrocodone 5 mg-acetaminophen 325 mg tablet 1 tab PO Q6H PRN pain #20 tabs 08/22/24 [Rx Confirmed 09/05/24] ibuprofen 600 mg tablet 600 mg PO Q6H PRN pain #30 tabs 08/22/24 [Rx Confirmed 09/05/24] labetalol 200 mg tablet 200 mg PO BID #60 tabs 08/24/24 [Rx Confirmed 09/05/24] Intake Visit Data Collection New Patient or Established: Established Patient (seen at [facility] within 3 years) Reason for Visit:: CSECTION FOLLOW UP Seen by Clinical Staff ONLY (RN/MA): No General Handling Supervisor Required: No Do You Feel Safe at Home: Yes Authorities Contacted: N/A PCP or OBGYN visit in last 3 months: Yes Date of Last PCP or OBGYN visit: 08/24/24 Hx Now: No Are you currently on any form of Control: No Pain Present Currently: Yes Pain Location: Abdomen (CSECTION) Pain Scale Used: Li-Mckinney/Numerical Pain scale:: 7 Smoking Status Smoking Status: 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: Past Medical History Past Medical History: No Hx Neurological Disorders, No Hx Hypothyroidism, No Hx Hyperthyroidism, Yes Hx Cardiac Disorders, Yes Hx Hypertension, No Hx Cancer, No Hx Blood Disorders, No Hx Gastrointestinal Disorders, No Hx Renal Disease, No Hx Deep Vein Thrombosis, No Hx Diabetes Mellitus Type 1, No Hx Diabetes Mellitus Type 2 and No Psychiatric Problems Questionnaires Covid-19 Vaccine Questionnaire Has patient been vacinated for Covid-19 Have you been vacinated for Covid-19: No Social History Living Situation History Marital Status: Life Partner Lives With: Family Housing: House Tobacco History Smoking Status: 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 Second Hand Smoke Exposure: No Alcohol History Alcohol Intake: Never Domestic Abuse History Do You Feel Safe at Home: Yes EPDS - PP Depression Screening [place] Pospartum Depression Screen I have been able to laugh and see the funny side of things: (3) Not at all I have looked forward with enjoyment to things: (0) As much as I ever did I have blamed myself unnecessarily when things went wrong: (0) No, never I have been anxious or worried for no good reason: (0) No, not at all I have felt scared or panicky for no very good reason: (0) No, not at all Things have been getting on top of me: (0) No, I have been coping as well as ever I have been so unhappy that I have had difficulty sleeping: (0) No, not at all I have felt sad or miserable: (0) No, not at all I have been so unhappy that I have been crying: (0) No, never The thought of harming myself has occurred to me: (0) Never EPDS completed yes Care OB Visit Log OB Flowsheet Initial Weight: Not Recorded Date -?-?-?-?-?-?-?-?-?-?-?-?- EGA Weight BP Alb Glu CTX Pres Fundal ht FHR Mov Dilation Station Effacement Hx Notes Visit Note 08/12/24 -?-?-?-?-?-?-?-?-?-?-?-?- 35w 3d 105.8 kg 140/87 at 31 weeks gestation presents for transfer of care. No contractions, leakage of fluid, vaginal bleeding, and reports good movement. Denies headache, vision changes, or right upper quadrant/epigastric pain. Gestational diabetes diagnosed with one-hour glucose 221 mg/dL, HbA1c 5.7%, managed on metformin 500 mg AM and 1000 mg PM; current sugars 130?150 postprandial and 110?120 fasting. Ultrasound at 31w3d shows DALLIN 24.02 cm, EFW 1876g (52nd percentile). NIPT negative for trisomies, blood type O+, normal hemoglobin and infectious screening. Plan: Problem list: Gestational diabetes kennedy leung, 31w. Continue metformin 500 mg AM and 1000 mg PM; initiate switch to long-acting insulin for nighttime coverage. Start hospital-based twice-weekly monitoring for diabetes management. Refill metformin prescription to [facility] in [place]. Weekly visits to begin, next [facility] appointment scheduled 08/20/2024. Counseling provided on movement monitoring, preeclampsia and labor precautions, nutrition, safe activity, and delivery preparation. 08/19/24 -?-?-?-?-?-?-?-?-?-?-?-?- 36w 3d 110.847 kg 132/83 @36w3d with GDM on metformin (500mg AM, 1000mg PM), declined insulin. Glucose logs show highs ~150. Reports persistent headache last week; evaluated at hospital. FHR 145 bpm, good FM. Awaiting growth US at [facility] on 08/20. Plan: Call [facility] at 3 PM for US re sults; consider induction based on growth. Book induction accordingly. Self-administered vaginal GBS swab today. F /u next week; provider to call patient with updates prior. Continue monitoring, safety counseling, and GDM management. LUIS Calculator Estimated Delivery Date Method Current WG Current Estimate 09/13/24 LMP (Certain) 43w 1d Other Estimates 09/21/24 Ultrasound #1 42w 0d 09/14/24 Ultrasound #2 43w 0d HPI Interval History: visit after on 08/22/2024 No specific complaints today Exam Narrative Physical exam: Dermabond Prenio removed. Incision c/d/i Office Procedures OB Clinic LOC & Office Proc's Nursing/Assessment Patient Status: Established Patient OB Clinic Nursing Assessment: Medication Reconciliation, Update PMH in EMR and Vital Signs OB Clinic Coordination of Care: Complex Care and Chronic Disease 1-5, C onsent,records obtained, informed consent, Education Simp Pt/Fam and Staff clarify orders Established Patient Charge Established Patient Point Assignment: 85 Antepartum Initial or Follow-up Antepartum Initial Visit: Yes Assessment & Plan Diagnosis / Problem List (1) delivery delivered: Status: Acute Plan Return for routine care after 6 weeks
[2024-08-29 08:55] VITALS: BP 169/104; PULSE 98; RESP 17; TEMP 36.7; O2SAT 97
== END 2024-08-29 10:54 | disposition home or self-care (01) ==
PROVIDERS: PCP Obstetrics & Gynecology; Referring Provider Obstetrics & Gynecology; Supervising Provider Obstetrics & Gynecology; Visit Provider Obstetrics & Gynecology
DX: Z39.2 Encounter for routine postpartum follow-up (principal)
CPT/HCPCS: 59425; Z1038

== ENCOUNTER 2024-09-05 13:51 | Outpatient (AMB) | payer OTHER, MEDICAID, SELFPAY ==
--- NOTE | 2024-09-05 13:54 | AMBOBPPN_ITS ---
Vital Signs 09/05/24 15:52 Height 1.6 m Height Method Stated Weight 93.894 kg Weight Measurement Method Standing Scale BMI 36.6 BP 148/88 H Blood Pressure Source Automatic Cuff Blood Pressure Location Right Upper Arm Position Sitting Respiration 18 Pulse 61 Pulse Source Monitor Temp 98.2 F Temp Source Temporal Artery Scan Pulse Oximetry (%) 97 Oxygen Delivery Method Room Air Allergies/Home Meds Allergies & Medications Allergies tampico Allergy (Intermediate, Uncoded 09/05/24 15:53) Hives Medication Reconciliation sertraline 100 mg tablet 100 mg PO DAILY 09/22/20 [History Confirmed 09/05/24] metformin 500 mg tablet 500 mg PO .see below 30 days #90 tabs 08/12/24 [Rx Confirmed 09/05/24] metformin 1,000 mg tablet 1,000 mg PO .nightly 08/20/24 [History Confirmed 09/05/24] hydrocodone 5 mg-acetaminophen 325 mg tablet 1 tab PO Q6H PRN pain #20 tabs 08/22/24 [Rx Confirmed 09/05/24] ibuprofen 600 mg tablet 600 mg PO Q6H PRN pain #30 tabs 08/22/24 [Rx Confirmed 09/05/24] labetalol 200 mg tablet 200 mg PO BID #60 tabs 08/24/24 [Rx Confirmed 09/05/24] Intake Visit Data Collection New Patient or Established: Established Patient (seen at [facility] within 3 years) Reason for Visit:: Seen by Clinical Staff ONLY (RN/MA): No Land Title Examiner Required: No Do You Feel Safe at Home: Yes Authorities Contacted: N/A PCP or OBGYN visit in last 3 months: Yes Date of Last PCP or OBGYN visit: 08/29/24 Hx Now: No Are you currently on any form of Control: No Pain Present Currently: Yes Pain Location: Head Pain Scale Used: Li-Mckinney/Numerical Pain scale:: 6 Smoking Status 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 Past Medical History: No Hx Neurological Disorders, No Hx Hypothyroidism, No Hx Hyperthyroidism, Yes Hx Cardiac Disorders, Yes Hx Hypertension, No Hx Cancer, No Hx Blood Disorders, No Hx Gastrointestinal Disorders, No Hx Renal Disease, No Hx Deep Vein Thrombosis, No Hx Diabetes Mellitus Type 1, No Hx Diabetes Mellitus Type 2 and No Psychiatric Problems Questionnaires Covid-19 Vaccine Questionnaire Has patient been vacinated for Covid-19 Have you been vacinated for Covid-19: No Social History Living Situation History Marital Status: Lives With: Family Housing: House Tobacco History Smoking Status: 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 Second Hand Smoke Exposure: No Alcohol History Alcohol Intake: Never Domestic Abuse History Do You Feel Safe at Home: Yes EPDS - PP Depression Screening [place] Pospartum Depression Screen I have been able to laugh and see the funny side of things: (0) As much as I always could I have looked forward with enjoyment to things: (1) Rather less than I used to I have blamed myself unnecessarily when things went wrong: (1) Not very often I have been anxious or worried for no good reason: (0) No, not at all I have felt scared or panicky for no very good reason: (0) No, not at all I have been so unhappy that I have had difficulty sleeping: (0) No, not at all I have felt sad or miserable: (0) No, not at all I have been so unhappy that I have been crying: (0) No, never The thought of harming myself has occurred to me: (0) Never Care OB Visit Log OB Flowsheet Initial Weight: Not Recorded Date -?-?-?-?-?-?-?-?-?-?-?-?- EGA Weight BP Alb Glu CTX Pres Fundal ht FHR Mov Dilation Station Effacement Hx Notes Visit Note 08/12/24 -?-?-?-?-?-?-?-?-?-?-?-?- 35w 3d 105.8 kg 140/87 at 31 weeks gestation presents for transfer of care. No contractions, leakage of fluid, vaginal bleeding, and reports good movement. Denies headache, vision changes, or right upper quadrant/epigastric pain. Gestational diabetes diagnosed with one-hour glucose 221 mg/dL, HbA1c 5.7%, managed on metformin 500 mg AM and 1000 mg PM; current sugars 130?150 postprandial and 110?120 fasting. Ultrasound at 31w3d shows DALLIN 24.02 cm, EFW 1876g (52nd percentile). NIPT negative for trisomies, blood type O+, normal hemoglobin and infectious screening. Plan: Problem list: Gestational diabetes kennedy leung, 31w. Continue metformin 500 mg AM and 1000 mg PM; initiate switch to long-acting insulin for nighttime coverage. Start hospital-based twice-weekly monitoring for diabetes management. Refill metformin prescription to [facility] in [place]. Weekly visits to begin, next [facility] appointment scheduled 08/20/2024. Counseling provided on movement monitoring, preeclampsia and labor precautions, nutrition, safe activity, and delivery preparation. 08/19/24 -?-?-?-?-?-?-?-?-?-?-?-?- 36w 3d 110.847 kg 132/83 @36w3d with GDM on metformin (500mg AM, 1000mg PM), declined insulin. Glucose logs show highs ~150. Reports persistent headache last week; evaluated at hospital. FHR 145 bpm, good FM. Awaiting growth US at [facility] on 08/20. Plan: Call [facility] at 3 PM for US re sults; consider induction based on growth. Book induction accordingly. Self-administered vaginal GBS swab today. F/u next week; provider to call patient with updates prior. Continue monitoring, safety counseling, and GDM management. LUIS Calculator Estimated Delivery Date Method Current WG Current Estimate 09/13/24 LMP (Certain) 39w 1d Other Estimates 09/21/24 Ultrasound #1 38w 0d 09/14/24 Ultrasound #2 39w 0d HPI Interval History: Patient reports she is doing good two weeks after her . She is currently and pumping for her . Upon examination of her incision site, it was noted that the tape had been removed. The patient mentions feeling a hard area under the skin, which was explained as normal tissue changes. She was advised to wear a binder for support during activities but to remove it while lying down or sleeping. Chiqui inquired about resuming normal activities, particularly swimming, which she was told she could do in another week with caution due to potential muscle cramping. She is a 24-year-old woman presenting for a 2-week postoperative follow-up after a primary Caesarean section performed at 36 weeks and 4 days on August 22, 2024. Her medical history is significant for chronic hypertension with superimposed preeclampsia, class B diabetes, and obesity. She delivered via primary Caesarean section at 36 weeks and 4 days on August 15, 2024. Complications during included chronic hypertension with superimposed preeclampsia, class B diabetes, obesity, and uncontrolled hypertension. She is currently taking an antihypertensive medication, labetalol, twice daily. Patient has a baby at home. 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 Exam General General Appearance: alert, in no apparent distress and healthy appearing Head Head exam: atraumatic Neck Neck exam: Present normal inspection and trachea midline Chest Chest inspection: Present normal inspection and symmetric chest wall rise External exam: Present normal external exam; Absent tenderness Neuro Neurological exam: Present oriented X3 Psych Psychiatric exam: Present normal affect and normal mood Office Procedures OB Clinic LOC & Office Proc's Nursing/Assessment Patient Status: Established Patient OB Clinic Nursing Assessment: Medication Reconciliation, Update PMH in EMR and Vital Signs OB Clinic Coordination of Care: Complex Care and Chronic Disease 1-5, Consent,records obtained, informed consent, Education Simp Pt/Fam and Staff clarify orders Established Patient Charge Established Patient Point Assignment: 85 Post Follow-up Visit Post Follow up Visit: Yes Assessment & Plan Diagnosis / Problem List (1) delivery delivered: Status: Acute Plan Postoperative status post primary Caesarean section: - Performed on August 22, 2024, at 36 weeks and 4 days gestation. - Incision site healing well, no visible tape or dressing. - Some induration noted under the skin. - Continue to wear abdominal binder when walking, sitting, standing, or carrying car seat. - Remove binder when lying down or sleeping. - Resume normal activities in one week (3 weeks post-Caesarean). - Cleared for swimming next week with caution. - Follow-up appointment scheduled for one month for final visit. Chronic hypertension with superimposed preeclampsia: - Currently taking antihypertensive medication twice daily. - Continue current antihypertensive medication twice daily. - Reassess blood pressure at 6-week visit. - Determine if medication can be discontinued at 6-week visit.
[2024-09-05 15:52] VITALS: BP 148/88; PULSE 61; RESP 18; TEMP 36.8; O2SAT 97; BMI 36.6
== END 2024-09-05 14:40 | disposition home or self-care (01) ==
LOC: HODSOBC 13:51
PROVIDERS: PCP Obstetrics & Gynecology; Referring Provider Obstetrics & Gynecology; Supervising Provider Obstetrics & Gynecology; Visit Provider Obstetrics & Gynecology
DX: Z39.2 Encounter for routine postpartum follow-up (principal); O10.93 Unspecified pre-existing hypertension complicating the puerperium; Z79.899 Other long term (current) drug therapy
CPT/HCPCS: Z1038